=== PATIENT | female | born 1940 | race Caucasian/White ===

== ENCOUNTER 2021-11-17 07:31 | Emergency (ER) | payer OTHER, MEDICAID ==
[~2021-11-17] VITALS: Ht 162.6 cm; Wt 77.0 kg
[2021-11-17 07:36] VITALS: BP 114/70
== END 2021-11-17 07:59 | disposition left against medical advice (07) ==
LOC: ER 07:31
DX: Z53.21 Procedure and treatment not carried out due to patient leaving prior to being seen by health care provider (principal)

== ENCOUNTER 2024-06-23 10:36 | Emergency (ER) | payer MEDICARE, MEDICAID ==
[~2024-06-23] VITALS: Ht 160 cm; Wt 91.0 kg
[2024-06-23 10:39] VITALS: BP 122/82; PULSE 86; RESP 18; TEMP 36.6; O2SAT 99
[2024-06-23 11:20] VITALS: TEMP 97.9
[2024-06-23] MEDS: ACETAMINOPHEN 325MG TABLET PO ONE (11:20)
[2024-06-23] MEDS ORDERED: TOPUD PO (11:25)
== END 2024-06-23 11:53 | disposition home or self-care (01) ==
LOC: ER 10:36
DX: S80.02XA Contusion of left knee, initial encounter (principal); S80.01XA Contusion of right knee, initial encounter; E11.9 Type 2 diabetes mellitus without complications; I10 Essential (primary) hypertension; X58.XXXA Exposure to other specified factors, initial encounter; Y93.01 Activity, walking, marching and hiking; Y92.89 Other specified places as the place of occurrence of the external cause; Y99.8 Other external cause status
CPT/HCPCS: 73560; 99283